=== PATIENT | female | born 1980 | race Caucasian/White ===

== ENCOUNTER 2017-11-07 08:50 | Emergency (ER) | payer MEDICAID ==
[2012-05-02 08:19] VITALS: BMI 31.0
[2017-11-07 09:28] LABS: BASOPHILS 0.3 % (0-2); EOSINOPHILS 3.5 % (0-7); HEMOGLOBIN 15.3 g/dL (12-16); IMMATURE GRANULOCYTES 0.3 % (0-5); LYMPHOCYTES 30.3 % (15-50); MCH 32.5 pg (26.0-34.0); MCHC 34.8 g/dL (31.0-37.0); MCV 93.4 fL (80.0-100.0); MEAN PLATELET VOLUME 9.9 fL (7.4-10.4); MONOCYTES 5.8 % (2-11); NEUTROPHILS 59.8 % (40-80); PLATELET COUNT 248 10x3/uL (130-400); RBC 4.71 10x6/uL (4.00-5.40); RDW 12.8 % (11.5-14.5); WBC 9.6 10x3/uL (4.8-10.8)
[2017-11-07 09:42] LABS: ALBUMIN 3.4 g/dL (3.4-5.0); ALKALINE PHOSPHATASE 64 U/L (46-116); ALT (SGPT) 18 U/L (10-68); CALC OSMOLALITY 278 mosm/kg (275-300); CALCIUM 8.7 mg/dL (8.5-10.1); CARBON DIOXIDE 26.5 mmol/L (21.0-32.0); CHLORIDE - SERUM 104 mmol/L (98-107); CREATININE - SERUM 0.8 mg/dL (0.6-1.3); POTASSIUM - SERUM 3.7 mmol/L (3.5-5.1); PROTEIN - SERUM 7.2 g/dL (6.4-8.2); SODIUM 139 mmol/L (136-145); UREA NITROGEN 10 mg/dL (7-18); eGFR NON AFRICAN AMERICAN 85 mL/min (90-120)
[2017-11-07 09:52] LABS: GLUCOSE 139 mg/dL (74-106)
[2017-11-07 09:53] LABS: CKMB 0.4 U/L (0.0-3.6); CREATINE KINASE 43 UL (21-215); TROPONIN-I < 0.017 ng/mL (0.000-0.060)
== END 2017-11-07 12:10 | disposition left against medical advice (07) ==
LOC: D.ER 08:50
PROVIDERS: Emergency Medicine
DX: R07.9 Chest pain, unspecified (principal); F17.200 Nicotine dependence, unspecified, uncomplicated

== ENCOUNTER 2019-01-29 13:56 | Emergency (ER) | payer OTHER ==
[~2019-01-29] VITALS: Ht 175.3 cm; Wt 81.8 kg
[2019-01-29 13:59] VITALS: BP 129/103; Ht 175.3 cm; Wt 81.8 kg
--- NOTE | 2019-01-29 14:44 | NUR ---
DR. MEDINA NOTIFIED AND REVIEWED PT'S BEHAVIOR AND ASSESSMENT RESULTS. PT IS A LOW RISK PER DR. MEDINA STATED TO GIVE RESOUCES TO PT AT TIME OF DISCHARGE. NO FURTHER ORDERS AT THIS TIME. RESOURCES REVIEWED WITH PT AND SHE VERBALIZED UNDERSTANDING. PT STATES "SHE HAS A LOT TO LIVE FOR AND SHE HAS GRANDKIDS TO LIVE FOR."
[2019-01-29 15:00] LABS: ALBUMIN 3.8 g/dL (3.4-5.0); ALKALINE PHOSPHATASE 81 U/L (46-116); ALT (SGPT) 20 U/L (10-68); BILIRUBIN - TOTAL 0.21 mg/dL (0.2-1.3); CALC OSMOLALITY 278 mosm/kg (275-300); CALCIUM 8.8 mg/dL (8.5-10.1); CARBON DIOXIDE 23.8 mmol/L (21.0-32.0); CHLORIDE - SERUM 104 mmol/L (98-107); CREATININE - SERUM 0.7 mg/dL (0.6-1.3); GLUCOSE 127 mg/dL (74-106); MAGNESIUM - SERUM 2.1 mg/dL (1.8-2.4); POTASSIUM - SERUM 3.7 mmol/L (3.5-5.1); PROTEIN - SERUM 8.1 g/dL (6.4-8.2); SODIUM 139 mmol/L (136-145); UREA NITROGEN 9 mg/dL (7-18); eGFR NON AFRICAN AMERICAN > 90 mL/min (90-120)
[2019-01-29 15:48] LABS: BASOPHILS 0.4 % (0-2); HEMATOCRIT 47.3 % (36.0-48.0); HEMOGLOBIN 16.6 g/dL (12-16); IMMATURE GRANULOCYTES 0.5 % (0-5); LYMPHOCYTES 26.5 % (15-50); MCH 32.7 pg (26.0-34.0); MCHC 35.1 g/dL (31.0-37.0); MCV 93.3 fL (80.0-100.0); MEAN PLATELET VOLUME 9.5 fL (7.4-10.4); MONOCYTES 5.7 % (2-11); NEUTROPHILS 65.9 % (40-80); PLATELET COUNT 294 10x3/uL (130-400); RBC 5.07 10x6/uL (4.00-5.40); RDW 13.2 % (11.5-14.5); WBC 10.5 10x3/uL (4.8-10.8)
== END 2019-01-29 15:30 | disposition home or self-care (01) ==
LOC: D.ER 13:56
PROVIDERS: Family Medicine
DX: Z00.00 Encounter for general adult medical examination without abnormal findings (principal)

== ENCOUNTER 2019-02-01 04:15 | Emergency (ER) | payer OTHER ==
[~2019-02-01] VITALS: Ht 175.3 cm; Wt 89.8 kg
[2019-02-01 04:24] VITALS: Ht 175.3 cm; Wt 89.8 kg
[2019-02-01 04:33] LABS: BASOPHILS 0.4 % (0-2); EOSINOPHILS 0.7 % (0-7); HEMATOCRIT 45.5 % (36.0-48.0); HEMOGLOBIN 16.3 g/dL (12-16); IMMATURE GRANULOCYTES 0.5 % (0-5); LYMPHOCYTES 20.7 % (15-50); MCH 33.1 pg (26.0-34.0); MCHC 35.8 g/dL (31.0-37.0); MCV 92.5 fL (80.0-100.0); MEAN PLATELET VOLUME 9.4 fL (7.4-10.4); MONOCYTES 5.1 % (2-11); NEUTROPHILS 72.6 % (40-80); PLATELET COUNT 318 10x3/uL (130-400); RBC 4.92 10x6/uL (4.00-5.40); RDW 12.9 % (11.5-14.5); WBC 14.6 10x3/uL (4.8-10.8)
[2019-02-01 04:41] LABS: ALKALINE PHOSPHATASE 95 U/L (46-116); ALT (SGPT) 37 U/L (10-68); BILIRUBIN - TOTAL 0.25 mg/dL (0.2-1.3); CALC OSMOLALITY 287 mosm/kg (275-300); CALCIUM 9.1 mg/dL (8.5-10.1); CARBON DIOXIDE 22.4 mmol/L (21.0-32.0); CHLORIDE - SERUM 106 mmol/L (98-107); CREATININE - SERUM 0.9 mg/dL (0.6-1.3); GLUCOSE 146 mg/dL (74-106); POTASSIUM - SERUM 3.8 mmol/L (3.5-5.1); PROTEIN - SERUM 8.1 g/dL (6.4-8.2); SODIUM 143 mmol/L (136-145); UREA NITROGEN 12 mg/dL (7-18); eGFR NON AFRICAN AMERICAN 74 mL/min (90-120)
[2019-02-01 04:43] LABS: APPEARANCE HAZY (CLEAR); BACTERIA NONE SEEN /hpf (NONE SEEN); BILIRUBIN NEGATIVE (NEGATIVE); COLOR YELLOW (YELLOW); EPITHELIAL CELLS 0-5 /hpf (0-5); GLUCOSE NEGATIVE (NEGATIVE); HCG URINE NEGATIVE (NEGATIVE); KETONE NEGATIVE (NEGATIVE); NITRITE NEGATIVE (NEGATIVE); PROTEIN 2+ mg/dL (NEGATIVE); RED CELLS - URINE RARE /hpf (0-5); UROBILINOGEN NORMAL (NORMAL); WHITE CELLS - URINE 0-5 /hpf (0-5)
[2019-02-01 04:44] LABS: UDS - AMPHET NEGATIVE QUAL (NEGATIVE); UDS - BARB NEGATIVE QUAL (NEGATIVE); UDS - BENZO NEGATIVE QUAL (NEGATIVE); UDS - COCAINE NEGATIVE QUAL (NEGATIVE); UDS - OPIATE NEGATIVE QUAL (NEGATIVE); UDS - PCP NEGATIVE QUAL (NEGATIVE); UDS - THC POSITIVE QUAL (NEGATIVE)
[2019-02-01 05:09] LABS: C-REACTIVE PROTEIN 0.7 mg/dL (0.0-0.9); CREATINE KINASE 3740 UL (21-215)
[2019-02-01 05:10] LABS: CKMB 3.1 U/L (0.0-3.6)
[2019-02-01 05:43] VITALS: BP 185/89
== END 2019-02-01 05:47 | disposition home or self-care (01) ==
LOC: D.ER 04:15
PROVIDERS: Family Medicine
DX: T14.8XXA Other injury of unspecified body region, initial encounter (principal); X58.XXXA Exposure to other specified factors, initial encounter; R45.83 Excessive crying of child, adolescent or adult; F17.210 Nicotine dependence, cigarettes, uncomplicated; I10 Essential (primary) hypertension; E78.5 Hyperlipidemia, unspecified

== ENCOUNTER 2020-03-08 06:07 | Emergency (ER) | payer OTHER ==
[~2020-03-08] VITALS: Ht 175.3 cm; Wt 86.4 kg
[2020-03-08 06:13] VITALS: Ht 175.3 cm; Wt 86.4 kg
[2020-03-08] MEDS ORDERED: KEFLEX500 MG PO (06:34)
[2020-03-08 06:45] VITALS: BP 134/80
== END 2020-03-08 06:45 | disposition home or self-care (01) ==
LOC: D.ER 06:07
DX: I88.9 Nonspecific lymphadenitis, unspecified (principal); I10 Essential (primary) hypertension; J45.909 Unspecified asthma, uncomplicated

== ENCOUNTER → 2020-04-08 08:54 | Outpatient (CLI) | payer OTHER ==
[2020-03-08 06:13] VITALS: BMI 28.1
[~2020-04-08 08:54] MED LIST: KEFLEX500 MG PO
== END | disposition home or self-care (01) ==
LOC: D.CT 08:54
PROVIDERS: ATTEND Surgery
DX: R59.1 Generalized enlarged lymph nodes (principal)

== ENCOUNTER 2020-10-19 19:50 | Emergency (ER) | payer MEDICAID ==
[~2020-10-19] VITALS: Ht 175.3 cm; Wt 109.1 kg
[2020-10-19 19:58] VITALS: Ht 175.3 cm; Wt 109.1 kg
[2020-10-19] MEDS ORDERED: TENORMIN50 MG PO (20:01)
[2020-10-19] MEDS ORDERED: TRAZODONE HCL100 MG PO (20:02)
[2020-10-19] MEDS ORDERED: CYCLOBENZAPRINE10 MG PO (20:02)
[2020-10-19 20:42] LABS: BILIRUBIN NEGATIVE (NEGATIVE); KETONE NEGATIVE (NEGATIVE); NITRITE NEGATIVE (NEGATIVE); UROBILINOGEN NORMAL mg/dL (< 2)
[2020-10-19 20:43] LABS: HEMATOCRIT 43.1 % (36.0-48.0); HEMOGLOBIN 14.7 g/dL (12-16); LYMPHOCYTE ABS# 5.19 10x3/uL (1.18-3.74); MCH 31.7 pg (26.0-34.0); MCHC 34.1 g/dL (31.0-37.0); MCV 93.1 fL (80.0-100.0); MEAN PLATELET VOLUME 9.1 fL (7.4-10.4); PLATELET COUNT 317 10x3/uL (130-400); RBC 4.63 10x6/uL (4.00-5.40); RDW 12.9 % (11.5-14.5); WBC 15.9 10x3/uL (4.8-10.8)
[2020-10-19 20:56] LABS: ALBUMIN 3.6 g/dL (3.4-5.0); ALKALINE PHOSPHATASE 89 U/L (30-120); ALT (SGPT) 25 U/L (10-68); AMYLASE - SERUM 36 U/L (25-115); BILIRUBIN - TOTAL 0.16 mg/dL (0.2-1.3); CALC OSMOLALITY 270 mosm/kg (275-300); CALCIUM 8.9 mg/dL (8.5-10.1); CARBON DIOXIDE 25.1 mmol/L (21.0-32.0); CHLORIDE - SERUM 103 mmol/L (98-107); CREATININE - SERUM 0.9 mg/dL (0.6-1.3); GLUCOSE 106 mg/dL (74-106); LIPASE 110 U/L (73-393); POTASSIUM - SERUM 3.7 mmol/L (3.5-5.1); PROTEIN - SERUM 7.8 g/dL (6.4-8.2); SODIUM 136 mmol/L (136-145); TROPONIN-I < 0.017 ng/mL (0.000-0.060); UREA NITROGEN 9 mg/dL (7-18); eGFR NON AFRICAN AMERICAN 73 mL/min (90-120)
[2020-10-19 21:22] LABS: EOSINOPHILS 1 % (0-7); LYMPHOCYTES 24 % (15-50); MONOCYTES 1 % (2-11); NEUTROPHILS 74 % (40-80); PLATELET ESTIMATE NORMAL
[2020-10-19 21:40] LABS: HCG URINE NEGATIVE (NEGATIVE)
[2020-10-20] MEDS ORDERED: HYDROCODON-ACE1 EA10 PO (00:38)
[2020-10-20 01:00] VITALS: BP 152/87
== END 2020-10-20 01:00 | disposition home or self-care (01) ==
LOC: D.ER 19:50
PROVIDERS: Family Medicine
DX: N83.201 Unspecified ovarian cyst, right side (principal); I10 Essential (primary) hypertension; J45.909 Unspecified asthma, uncomplicated; Z72.0 Tobacco use

== ENCOUNTER 2020-12-26 09:51 | Emergency (ER) | payer MEDICAID ==
[~2020-12-26] VITALS: Ht 175.3 cm; Wt 113.7 kg
[~2020-12-26 09:51] MED LIST changes: +CYCLOBENZAPRINE10 MG PO; +HYDROCODON-ACE1 EA10 PO; +TENORMIN50 MG PO; +TRAZODONE HCL100 MG PO
[2020-12-26 09:58] VITALS: BP 145/87; Ht 175.3 cm; Wt 113.7 kg
[2020-12-26 10:25] LABS: EOSINOPHILS 2.7 % (0-7); HEMATOCRIT 43.8 % (36.0-48.0); LYMPHOCYTES 33.4 % (15-50); MCH 31.7 pg (26.0-34.0); MCHC 34.2 g/dL (31.0-37.0); MCV 92.9 fL (80.0-100.0); MEAN PLATELET VOLUME 7.7 fL (7.4-10.4); MONOCYTES 6.2 % (2-11); NEUTROPHILS 56.7 % (40-80); PLATELET COUNT 359 10x3/uL (130-400); RBC 4.72 10x6/uL (4.00-5.40); RDW 13.1 % (11.5-14.5)
[2020-12-26 10:32] LABS: CALC OSMOLALITY 277 mosm/kg (275-300); CALCIUM 9.5 mg/dL (8.5-10.1); CARBON DIOXIDE 24.4 mmol/L (21.0-32.0); CHLORIDE - SERUM 105 mmol/L (98-107); CREATININE - SERUM 0.8 mg/dL (0.6-1.3); GLUCOSE 123 mg/dL (74-106); POTASSIUM - SERUM 4.6 mmol/L (3.5-5.1); SODIUM 139 mmol/L (136-145); UREA NITROGEN 11 mg/dL (7-18); eGFR NON AFRICAN AMERICAN 84 mL/min (90-120)
[2020-12-26 10:38] LABS: ALBUMIN 3.7 g/dL (3.4-5.0); ALKALINE PHOSPHATASE 80 U/L (30-120); ALT (SGPT) 28 U/L (10-68); BILIRUBIN - TOTAL 0.36 mg/dL (0.2-1.3); C-REACTIVE PROTEIN 1.3 mg/dL (0.0-0.9); LIPASE 255 U/L (73-393); PROTEIN - SERUM 7.8 g/dL (6.4-8.2)
[2020-12-26 11:10] LABS: BACTERIA FEW HPF (NONE SEEN); BILIRUBIN NEGATIVE (NEGATIVE); KETONE NEGATIVE (NEGATIVE); NITRITE NEGATIVE (NEGATIVE); SQUAMOUS EPITHELIAL 0-5 HPF (0-4); UROBILINOGEN NORMAL mg/dL (< 2); WHITE CELLS - URINE RARE HPF (0-4)
[2020-12-26 11:18] LABS: UDS - AMPHET NEGATIVE QUAL (NEGATIVE); UDS - BARB NEGATIVE QUAL (NEGATIVE); UDS - BENZO NEGATIVE QUAL (NEGATIVE); UDS - COCAINE NEGATIVE QUAL (NEGATIVE); UDS - OPIATE POSITIVE QUAL (NEGATIVE); UDS - PCP NEGATIVE QUAL (NEGATIVE); UDS - THC POSITIVE QUAL (NEGATIVE)
== END 2020-12-26 12:03 | disposition home or self-care (01) ==
LOC: D.ER 09:51
PROVIDERS: Family Medicine
DX: R10.9 Unspecified abdominal pain (principal); K63.89 Other specified diseases of intestine; I10 Essential (primary) hypertension; J45.909 Unspecified asthma, uncomplicated; Z72.0 Tobacco use